=== PATIENT | female | born 1955 | race Caucasian/White ===

== ENCOUNTER 2018-07-11 15:33 | Observation (INO) | payer OTHER, SELFPAY ==
[2018-06-24 13:14] VITALS: BMI 34.7
[2018-07-10] VITALS (13 sets, daily range): BP systolic 97–167; BP diastolic 47–85; PULSE 68–86; RESP 15–21; TEMP 35.6–37.2; O2SAT 97–100; BMI 34.7
--- NOTE | 2018-07-10 06:00 | DI.RAD.S_ITS ---
PROCEDURE: XR KNEE RT 1TO2V INDICATIONS: post op film TECHNIQUE: 2 view(s) of the knee acquired. COMPARISON: None. FINDINGS: Bones: Patient is status post knee joint arthroplasty. Hardware components are in expected positions. Visualized bony structures are intact. Soft tissues: Overlying postoperative changes are noted. IMPRESSION: Post right total knee arthroplasty changes with anatomic right knee alignment. Dictated by: Alvaro Atkins M.D. on 07/10/2018 at 10:06 Approved by: Alvaro Atkins M.D. on 07/10/2018 at 10:07
[2018-07-10] MEDS: ACETAMINOPHEN 325 MG TABLET 975 MG PO (06:43)
[2018-07-10] MEDS: PREGABALIN 75 MG CAPSULE PO (06:44)
[2018-07-10] MEDS: CELECOXIB 200 MG CAPSULE PO (06:44)
[2018-07-10] MEDS: LACTATED RINGERS 1,000 ML 100 ML IV ×2 (06:51→08:53)
--- NOTE | 2018-07-10 07:40 | PM.PREOP ---
Pre-operative Note Interval Note Pre-op Check: Yes History & Physical Reviewed by Physician and Yes Exam Performed Changes: No
--- NOTE | 2018-07-10 07:42 | PM.OP.1 ---
Operative Date/Time/Diagnoses Date of procedure: 07/10/18 Time of procedure: 09:13 Pre-op diagnosis: Right knee osteoarthritis with valgus alignment Post-op diagnosis: same Procedure & Clinicians Procedure: Right total knee arthroplasty with S&N Visionaire guides Same procedure as scheduled: Yes Indications: The patient presents today for total knee arthroplasty after failure of conservative treatment. The nature of the procedure including the risks and benefits, alternatives, postoperative course and expected outcome were discussed and all questions answered. Consent was obtained. Operative site confirmed and marked. Surgeon: Ivan Shah Audio Director: Majo Pace Anesthesia Type: General, Spinal and Local Operative Notes Findings: Severe lateral compartment arthritis with mild valgus alignment. Closure Type: primary Specimen(s): none sent Implants & Drains: Hahn [employer] Nephew Nima BCS: 4 femoral component, 2 tibial component, 9 mm BCS polyethylene tray and 32 x 9 mm round patella Applied: implant(s) Estimated Blood Loss (mL): 25 Blood products transfused: none Tourniquet time (min): 22 Procedure in detail: The patient was taken to the operative suite and placed under general and spinal anesthesia. The patient was given prophylactic antibiotics prior to surgery. The patient was also given tranexamic acid, 1 g, just prior to surgery for postoperative hemostasis. The lateral knee was prepped and the joint injected with 20 mL of 1% Lidocaine with epinephrine. The knee was then prepped and draped in usual sterile fashion. The leg was exsanguinated with an Esmarch dressing and the tourniquet raised to 250 torr. A 15 cm anterior incision was made. Next a medial trivector arthrotomy was made. The extensor mechanism was marked to ensure accurate repair. Initial exposing dissection was carried out medially and laterally. The knee was then extended and the patellar thickness was measured and a cut made removing approximately 9 mm of bone with a goal of restoring normal patellar thickness. The patella was then sized and drilled. Some excess lateral bone was excised and the patellofemoral ligament released. The tourniquet was then released. The knee was then flexed and the H[employer]hew Visionaire femoral guide was placed. The anterior pins were placed and the distal rotation holes drilled. The distal cutting guide was placed and the templated distal femoral cut was made. The templating cutting block was then placed and the anterior, posterior and chamfer cuts made. The H[employer]hew Visionaire tibial guide was placed and the alignment checked along the axis of the proximal tibial with a alana. The proximal tibial cut was then made with an oscillating saw. All meniscus and bony debris was then removed. Flexion extension gaps were checked. There is just mild tightness laterally particularly in extension. This was corrected by releasing the lateral capsule with a 15 blade using a pie crust technique. The soft tissues were then injected with a combination of 20 mL of half percent Marcaine with epinephrine and 20 mL of Exparel. The trial components were then placed. The knee went into full extension and flexion beyond 120?. There was excellent medial- lateral balance throughout motion. Patellar tracking was excellent. The trial components were removed and size is confirmed for the final implants. The knee was then exsanguinated with an Esmarch dressing and the tourniquet reapplied for cementing. The knee was cleansed with Pulsavac irrigation and dried. The final components were cemented in with high viscosity vacuum mixed bone cement with antibiotics. The knee was held in extension and the patellar clamp until the cement had adequately cured. The knee was then irrigated with dilute Betadine solution. The extensor mechanism was closed with 5 interrupted #1 Vicryl sutures in 90 degrees of flexion. The joint was then injected with a combination of 1 g of tranexamic acid and 20 mL of quarter percent Marcaine with epinephrine. The subcutaneous tissue was closed with 2-0 Vicryl. The skin was closed with charly and surgical adhesive. An Aquacel dressing and Vinh wrap were then applied. Complications: none Condition: stable Disposition: PACU Plan for aftercare: [facility] protocol for total knee arthroplasty.
[2018-07-10] MEDS: CEFAZOLIN 2 GM/100 ML FROZ.PIGGY IV ×2 (07:44→17:16)
--- NOTE | 2018-07-10 08:21 | SUR.OPER ---
Supine on padded OR bed. Pillow under head, arms secured on padded armboards <90 degree abduction. Safety belt across torso. Non-operative leg secured with tape over blanket over lower leg. Operative leg secured in DeMayo/Jatin positioner. Foam padded brace at thigh of operative leg.
[2018-07-10] MEDS: LIDOCAINE 1% W/EPI INJ 20 ML INJ (08:32)
[2018-07-10] MEDS: BUPIVACAINE 0.5% W/ EPI (PF) 20 ML, BUPIVACAINE LIPOSOME 266 MG, SODIUM CHLORIDE 0.9% 8... INJ (08:33)
[2018-07-10] MEDS: BUPIVACAINE 0.5% W/ EPI (PF) 10 ML, TRANEXAMIC ACID 1,000 MG, SODIUM CHLORIDE 0.9% 20 ML INJ (08:35)
[2018-07-10] MEDS: TRANEXAMIC ACID 1,000 MG VIAL 1000 MG INJ ×2 (08:36→08:53)
[2018-07-10] MEDS: POVIDONE-IODINE 15 ML, SODIUM CHLORIDE 0.9% 250 ML TOP (08:36)
[2018-07-10] MEDS: LACTATED RINGERS 1,000 ML 125 ML IV ×2 (10:20→20:09)
--- NOTE | 2018-07-10 13:22 | PC.NURSE ---
0950- Pt admitted to the floor at 0950. Dressing to r.knee with aquacel and vinh wrap. Both are cdi. Pt has feeling to mid thigh. She was incontinent of urine x1. Vinh wrap removed from aquacel dressing as it got wet. Pt is independent in her bed and is moving from side to side well. She denies pain. Pt has LR infusing at 125cc/hr. has been visiting with patient. PPX2 and pt denies any numbness or tingling at this time.
--- NOTE | 2018-07-10 13:55 | PT.IIE ---
Current Diagnoses Insomnia, unspecified (07/10/18) Obstructive sleep apnea (adult) (pediatric) (07/10/18) Surgery Performed Operation Date: 07/10/18 07:45 Actual Procedures p Total Knee Arthroplasty(Right) - Ivan Shah MD Surgical History (Last Updated 06/24/18 @ 15:18 by Martita Forde, RN) H/O sinus surgery (Acute) H/O: (Acute) History of bilateral tubal ligation (Acute) History of bladder suspension procedure (Acute) History of colonoscopy (Acute) History of mandibular surgery (Acute) Medical History (Last Updated 06/24/18 @ 15:22 by Martita Forde, RN) Anemia, iron deficiency (Acute) Anxiety (Acute) Arthropathy of hand (Acute) Bilateral carpal tunnel syndrome (Acute) Zoya nodes (DJD hand) (Acute) Bruises easily (Acute) Cataracts, bilateral (Acute) Constipation (Acute) DJD (degenerative joint disease) of knee (Acute) Elevated BP without diagnosis of hypertension (Acute) GERD (gastroesophageal reflux disease) (Acute) Headache (Acute) History of menorrhagia (Acute) Hyperthyroidism (Acute) Hyponatremia (Acute) Insomnia (Acute) Low back pain (Acute) HARVEY (obstructive sleep apnea) (Acute) Other constipation (Acute) Other hyperlipidemia (Acute) PLMD (periodic limb movement disorder) (Acute) Postmenopausal (Acute) Recurrent sinusitis (Acute) Restless leg syndrome (Acute) Sigmoid diverticulosis (Acute) Thrombocytopenia (Acute) Physical Therapy Inpatient Evaluation/Re-Eval M1 PT/OT-IP Prior Functional Status Start: 07/10/18 15:17 Freq: NEEDED Status: Active Protocol: Document 07/10/18 13:55 AB (Rec: 07/10/18 15:49 AB [id number]) Medical Review Prior Functional Status Medical History Reviewed Yes Communication able to make needs known Mobility and Gait stated that she is independent with all mobilities and ambulation without AD; able to walk ~ 1 mile but will have a lot of knee pain afterwards Social History Household Members spouse Living Arrangements House Number of Floors (Floors) 3 or More Floors Number of Stairs To Enter/Railing? 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 M2 PT-IP Current Condition Start: 07/10/18 15:17 Freq: NEEDED Status: Active Protocol: Document 07/10/18 13:55 AB (Rec: 07/10/18 15:49 AB [id number]) Physical Therapy Current Condition Current Condition Evaluation Date 07/10/18 Treatment Diagnosis s/p R TKA; difficulty in walking Onset Date 07/10/18 Weight Bearing Status Weight Bearing Status Weight Bear as Tolerated M3 PT-IP Subjective Start: 07/10/18 15:17 Freq: NEEDED Status: Active Protocol: Document 07/10/18 13:55 AB (Rec: 07/10/18 15:49 AB [id number]) Subjective Physical Therapy Visit Type Type Initial Evaluation Visit Start Time 13:55 Visit Stop Time 14:38 Total Visit Minutes 43 Number of CREMATOR Visits 0 Physical Therapy Visit Comments Patient Comments pt agreeable to do PT Therapy Pain Assessment Pain When Pain Assessed At Rest Pain Present Pain Present Pain Reported Location Right Knee Intensity 6 Scale Used Numeric (1 - 10) Description With Movement Pain Management Techniques Apply Cold Re-positioning Timing of Activity with Medications M4 PT-IP Mobility and Gait Start: 07/10/18 15:17 Freq: NEEDED Status: Active Protocol: Document 07/10/18 13:55 AB (Rec: 07/10/18 15:49 AB [id number]) PT-Bed Mobility Assessment Supine to Sit Supine to Sit Standby Assistance 1 Person Assistance Scooting Scooting to Edge of Bed Standby Assistance PT-Transfer Assessment Sit to and From Stand Sit to and from Stand Contact Guard Assistance 1 Person Assistance Use of Upper Extremities Equipment Transfer Assistive Device Gait Belt Front Wheeled Walker Orthotic/Prosthetic Devices or Brace: No Transfers Transfer Destination Toilet Transfer Technique pt ambulated to the toilet using FWW Transfer Ability Level of Assist Contact Guard Assistance 1 Person Assistance Use of Upper Extremities Comments Mobility Comments BP in supine 141/71. pt requested to use the toilet and ambulated using FWW CGA and cues. pt was able to maintain standing balance CGA while assisted with brief management. pt ambulated towards the sink CGA using FWW and was able to maintain standing balance CGA while completing handwashing. pt ambulated back to chair using FWW CGA. BP checked 149/90. Gait Assessment Gait Gait Assistance Required: Contact Guard Assist Distance (Feet) 75 Able to Maintain Weight Bearing Status Yes During Gait Assistive Devices Assistive Device Gait Belt Front Wheeled Walker Orthotic/Prosthetic Devices or Brace: No Gait Deviations General Gait Pattern Antalgic Decreased Stride Length Decreased Feet Clearance Factors Limiting Gait Function Factors Limiting Gait Function Decreased Activity Tolerance Decreased Strength Limited Range of Motion Pain Poor Balance Comments Gait Comments pt ambulated in room using FWW 75 ft CGA and cues. PT-Balance Assessment Sitting Balance and Reactions Static Sitting Balance Ability Good Dynamic Sitting Balance Ability Good Standing Balance and Reactions Static Standing Balance Ability Fair Dynamic Standing Balance Ability Fair Device Used FWW M5 PT-IP Objective Assessments Start: 07/10/18 15:17 Freq: NEEDED Status: Active Protocol: Document 07/10/18 13:55 AB (Rec: 07/10/18 15:49 AB [id number]) Orientation Orientation/Cognition Level of Alertness Alert Orientation Name Age Birthday Month Date Year Day of Week Place Situation Safety Awareness Understands Safety Issues Memory Description No Deficits Noted Gross Range of Motion Lower Extremity ROM Assessment Right Impaired Impairments R knee flexion : ~ 70 degrees Strength Lower Extremity Strength Assessment Right Impaired Knee 3+/5 Muscle Tone Muscle Tone WNL Yes M6 PT-IP Treatment Start: 07/10/18 15:17 Freq: NEEDED Status: Active Protocol: Document 07/10/18 13:55 AB (Rec: 07/10/18 15:49 AB [id number]) Physical Therapy Treatment Education Education Provided Precautions Weight Bearing Status Post-Op Packet Safety M7 PT-IP Assessment and Plan Start: 07/10/18 15:17 Freq: NEEDED Status: Active Protocol: Document 07/10/18 13:55 AB (Rec: 07/10/18 15:49 AB [id number]) PT Summary Assessment and Plan Potential Rehabilitation Potential Good Status of Condition at Evaluation Stable Summary Impairments Pain ROM Strength Balance Coordination Sensation Tone Cognition Bed Mobility Transfers Gait Activity Tolerance Assessment Summary pt requiring SBA to CGA with mobility and will likely improve during hospital stay. pt will have spouse and daughter in law to assist her at home. stairclimbing will be completed prior to d/c and if able to complete safely, pt may go home when medically stable. Goals Bed Mobility Goal Independent Transfer Goal Independent Front Wheeled Walker Gait Goal Independent Four Wheel Walker Gait Distance 250 Other Goals Short term goals: 1. improve ambualtion to mod I using 4WW Log term goals: 1. up/down 5 steps with L rail ascending; 15 steps with R rail descending. Days to Meet Goals 3 Frequency of Treatment Frequency Of Treatment Twice a Day Treatment Plan Physical Therapy Treatment Plan Bed Mobility Training Transfer Training Gait Training Therapeutic Exercise Balance Retraining Post Op Education Discharge Planning Hot or Cold Pack Neuromuscular Re-ed Coordination Retraining Manual Therapy Recommendations To Nursing Amount of Assist Needed 1 Person Assist Discharge Recommendations PT Discharge Recommendations Home with Assistance Outpatient PT
[2018-07-10] MEDS: OXYCODONE IR 5 MG TABLET PO ×3 (14:24→20:54)
--- NOTE | 2018-07-10 16:50 | PC.NURSE ---
Addendum entered by Chelly Almeida R.N. 07/10/18 22:33: Pt med @ 2100 for discomfort. Dsg remains CDI. 1+ edema at ankles Stable post op course. Call light w/in reach, bed alarm on for pt safety. Continue w/plan of care Original Note: Pt sitting in chair. Assisted to BR w/FWW w/o incidense. Denies discomfort at this time. IV LR @ 125/hr via pump infusing into right hand w/o incidence. Aquacell dsg to right knee CDI. IS to 1999 Stable post op course.
[2018-07-10] MEDS: LOVASTATIN 20 MG TABLET 40 MG PO (17:14)
[2018-07-10] MEDS: ASPIRIN EC 81 MG TABLET PO (20:51)
[2018-07-10] MEDS: PRAMIPEXOLE 0.25 MG TABLET 0.5 MG PO (20:52)
[2018-07-11] MEDS: OXYCODONE IR 5 MG TABLET PO ×2 (00:05→04:01)
[2018-07-11] MEDS: CEFAZOLIN 2 GM/100 ML FROZ.PIGGY IV (00:05)
[2018-07-11] MEDS: ONDANSETRON 4 MG/2 ML INJ IV (01:09)
[2018-07-11] MEDS: IBUPROFEN 600 MG TABLET PO (01:19)
[2018-07-11] MEDS: HYDROMORPHONE 0.5 MG INJ IV (03:24)
--- NOTE | 2018-07-11 03:28 | PC.NURSE ---
Pt A&OX3. LS: clear. PP++. CMS++. R.knee dressing CDI. Pt c/o nausea and had an emesis of 50cc, administered zofran. pt now taking IV dilaudid. IVF infusing. pt drinking plenty of water.
[2018-07-11 03:34] VITALS: BP 152/78; PULSE 100; RESP 18; TEMP 37.1; O2SAT 97
[2018-07-11 07:30] VITALS: BP 148/87; PULSE 78; RESP 18; TEMP 36.8; O2SAT 97
--- NOTE | 2018-07-11 07:44 | PM.DS.1 ---
History of Present Illness Date Patient Seen: 07/11/18 Time Patient Seen: 07:44 Chief complaint: *OPB* total knee right [id number] Narrative: Hospital day 2, postop day 1 following right total knee arthroplasty by Dr. Shah. Patient is remained stable postoperatively. Did have 1 episode of nausea and vomiting which he thinks is related to her pain. She did work with physical therapy yesterday. Note increased knee pain today. She did have to have an IV dose of Dilaudid. She is concerned about going home today as she has 5 steps getting into the house and 15 steps to go up to her bedroom and bathroom. She was anticipating going home today. She has a [facility] patient and has postoperative pain medications at home. She is scheduled to go to [facility]. Discharge Providers Primary care physician: Jose Barnhart MD Consults: 07/10/18 10:39 Consult to Discharge Planning Routine Comment: Consult to Physical Therapy Evaluate & Treat Comment: Physician Instructions: postop TKA protocol Consult to Respiratory Therapy Evaluate & Treat Comment: Physician Instructions: Evaluate and treat Discharge provider: Gee Greenberg PA-C Discharge Date: 07/11/18 Summary Discharge Diagnosis: Status post right total knee arthroplasty Hospital Course: Patient brought to hospital on 07/10/2018 for above noted surgery. She remained stable postoperatively. Progressed slowly with physical therapy. She was discharged home on postop day 1 pending clearance by physical therapy. Status at Discharge Cognitive/behavioral status at discharge: Alert, oriented no acute distress Functional status at discharge: uses cane/walker Overall status at discharge: patient is progressing back to baseline Time Spent with Patient Less than 30 minutes Exam Vital Signs (past 8 hours): - 07/10/18 23:50 07/11/18 03:34 Temperature 99.0 F 98.8 F Pulse Rate 82 100 H Respiratory Rate 18 18 Blood Pressure 148/85 H 152/78 H Pulse Oximetry 98 97 Oxygen Delivery Method Room Air Oxygen Flow Rate 0 Narrative Exam Narrative: Right leg. Vinh wrap an Aquacel dressing to her right knee are dry without drainage or inflammation. Mild swelling of the knee and lower leg. Calf is soft and nontender. Good pulses distally. Limited ROM of knee. Objective Labs Result Diagrams: 07/11/18 05:37 Discharge Plan Discharge Plan Patient Disposition: Home Discharge comment: Discharged to home today pending clearance by physical therapy. She is a [facility] patient and has postoperative pain medications at home. She is scheduled to go [facility]. Discharge Med Rec/Prescriptions Prescriptions: New aspirin 81 mg Tablet,Delayed Release (Dr/Ec) 81 mg PO BID Qty: 60 RF: 0 hydroxyzine pamoate 25 mg Capsule 25 mg PO Q4HR PRN (Reason: Nausea) Qty: 20 RF: 0 Continue lovastatin 40 mg Tablet 40 mg PO QPM RF: 0 pramipexole 0.5 mg Tablet 0.5 mg PO BEDTIME RF: 0 ranitidine HCl 150 mg Tablet 150 mg PO DAILY PRN (Reason: Heartburn) RF: 0 ibuprofen [Advil] 200 mg Tablet 400 mg PO QID PRN (Reason: Pain) RF: 0 Discharge Orders: Discharge (Order); Ordered 07/11/18 Ordered By: Gee Greenberg Provider Discharge Instructions Diet: Diet as Tolerated Activity: Ambulate as tolerated. Move right knee as much as possible. Cold/Heat Therapy: Cold pack to right knee as needed. Skin/Wound/Dressing Care Report to your healthcare provider any signs of infection, such as:: chills, fever, night sweats, increased pain, unusual drainage and unusual redness Dressing: Keep Aquacel dressing in place to right knee untill postop visit. Visit Report/Discharge Packet Instructions: DI for Knee Replacement Stand Alone Forms: Surgery Discharge Discharge Data Primary Care Provider: Jose Barnhart Attending Provider: Ivan Shah VTE Deep Vein Thrombosis/Pulmonary Embolism Present on Admission: No
[2018-07-11] MEDS: hydrOXYzine pamoate 25 MG CAPSULE PO ×3 (08:01→18:40)
[2018-07-11] MEDS: ASPIRIN EC 81 MG TABLET PO ×2 (08:01→21:30)
[2018-07-11 08:17] LABS: Hematocrit 35.9 % (36-46); Hemoglobin 12.1 g/dL (12.0-16.0)
[2018-07-11] MEDS: OXYCODONE IR 5 MG TABLET 10 MG PO ×5 (08:38→21:30)
--- NOTE | 2018-07-11 08:57 | CM.DANOTE ---
DCP/Assessment: Reviewed chart. Patient is a 63yr old female [place] [facility] [place] [facility] performed by Dr. Shah on 07-10-18. Primary payor is 1)Prakash DONALDSON. PCP is Dr. Barnhart. Met with patient explained CM/SW role. Patient sitting in recliner, alert and oriented at time of visit. Patient reports that she resides with her spouse/Keenan in [place]. Patient is employed with the [place]. Patient anticipates going home when medically stable. Patient reports that she has all needed DME including walker and outpatient therapy has been scheduled to begin next week in [place]. Initially, it was thought patient might be able to d/c home today. However, patient has had pain and concerned about managing the stairs she has at her residence. Spoke with Ortho/PA Olman and he reports that patient most likely will discharge tomorrow. Plan is for patient to get pain under control today and work on stairs with physical therpy. UR/RN Ivan wheeler. P: Home when stable, likely tomorrow 07-12-18. VANESA Munoz Discharge Planning/Care Management Pre-Anesthesia Assessment Start: 06/24/18 13:14 Freq: Status: Active Protocol: Document 06/24/18 13:14 [facility] (Rec: 06/24/18 13:38 [facility] [id number]) Pre-Anesthesia Assessment Patient Also Known As Nydia Cain (AKA)) Patient Information Reviewed Via Chart Review Phone Assessment Assessment Completed With Patient Primary Care Provider Jose Barnhart Seen Specialist in Last 12 Months Yes Specialist Seen Carpet Binder Orthopedist Other Comment GI Primary Language Italian Supervisor Of Guidance And Testing Required No Height 146.05 cm Weight 73.936 kg Body Mass Index (BMI) 34.7 Hearing Ability Normal Visual Impairment Partially Limited Visual Assist Glasses Dentition Type Teeth, Natural Present Barriers to Learning Visual Other Aids No Hx Anesthesia Reactions Yes: N&V Hx Family Anesthesia Reaction No Hx Malignant Hyperthermia No Hx Blood Transfusions Yes: 1983 Hx Blood Transfusion Reaction No Anesthesia Review Requested No Member Of Technical Staff No alcohol intake current alcohol intake frequency a few times a month Smoking Status Never smoker Substance Use Type does not use Pain Present Pain Reported Comment Bilateral knees Musculoskeletal Symptoms Arthralgias Back Pain Joint Pain Joint Stiffness Joint Swelling Limited Range of Motion Muscle Spasms History of Falling (Recent or History of No ) Patient is completely paralyzed or No completely immobile Ambulatory Aid None/bed rest/nurse assist Mental Status Oriented to own ability Is patient on oxygen? No Does patient have RAMIREZ/SOB No Hx Sleep Apnea Yes CPAP/BIPAP use prescribed and used routinely Currently Taking a Beta Eduar No Can You Climb a Flight of Stairs Without Yes SOB Hx Chest Pain No Hx SOB No Hx Syncope or Dizziness No Anti-Coagulant Therapy No Has a Commercial Litigation Associate No Cardiac Testing No Hx Pacemaker/ICD No Pacemaker Rep Required? No Cardiac Clearance Received Not Applicable Diet Type At Home Low Carb dysphagia Yes Bladder Pattern Frequency Nocturia Urgency Urinary Catheter Present No Hx Urinary Self Catheterization No Diabetes No Patient No Lactating No Hx Drug Resistant Organism No Presence of External or Internal Medical No Devices Have you traveled outside the [facility] in the last 30 days? Marital Status Lives With spouse Prior Living Arrangements House Number of Floors (Floors) 3 or More Floors Number of Stairs To Enter/Railing? Able to stay on the main level post-op; 5 stairs into house w/handrail Support System Family Spouse Does the Patient Have Assistance After Yes Surgery Patient Discharge Plan Description Home Health Feels Safe in Current Environment Yes Been Physically Hurt or Threatened By a No Person in Current Environment Do you have thoughts of harming yourself None or others? Are you currently considering suicide? No Do you have a plan to hurt yourself or No Plan others? Do You Have Any Spiritual Beliefs That No May Affect Your HC Choices? Do You Have Any Cultural Practices That No May Affect Your HC Choices? Spiritual Referral None Comment [facility] Who Can We Speak to About Patient's Care Family & Friends Identifying Code for Release of Patient Declined Information Health Care Proxy/Next of Kin - Keenan Nolasco Health Care Proxy Phone Number C [phone]; [phone] W Emergency Contact Name - Keenan Nolasco Emergency Contact Phone Number C [phone]; [phone] W Advance Directives? No: Mailed to patient Requested Patient Bring Advanced Yes Directives DOS Power of Unhairing Inspector No PAC Instructions Assistance for 24 hours post- op Bring CPAP/BIPAP Do not shave/clip surgical site Durable medical equipment Medications to take/avoid Nasal antibiotic No ETOH/petroleum product on skin DOS NPO Ortho class Post-op transportation Pre-op antibiotic Pre-surgical wash Sensory aids Sturdy shoes/comfortable clothes Do not bring valuables and remove jewelry Comment Check-in 0610 Discharge Planning/Care Management Pre-Anesthesia Assessment Start: 06/24/18 13:14 Freq: Status: Active Protocol: Document 06/24/18 13:14 [facility] (Rec: 06/24/18 13:38 [facility] [email or web address]) Pre-Anesthesia Assessment Patient Also Known As (CEDRIC Cain) Patient Information Reviewed Via Chart Review Phone Assessment Assessment Completed With Patient Primary Care Provider Jose Barnhart Seen Specialist in Last 12 Months Yes Specialist Seen Carpet Binder Orthopedist Other Comment GI Primary Language Italian Supervisor Of Guidance And Testing Required No Height 146.05 cm Weight 73.936 kg Body Mass Index (BMI) 34.7 Hearing Ability Normal Visual Impairment Partially Limited Visual Assist Glasses Dentition Type Teeth, Natural Present Barriers to Learning Visual Other Aids No Hx Anesthesia Reactions Yes: N&V Hx Family Anesthesia Reaction No Hx Malignant Hyperthermia No Hx Blood Transfusions Yes: 1982 Hx Blood Transfusion Reaction No Anesthesia Review Requested No Member Of Technical Staff No alcohol intake current alcohol intake frequency a few times a month Smoking Status Never smoker Substance Use Type does not use Pain Present Pain Reported Comment Bilateral knees Musculoskeletal Symptoms Arthralgias Back Pain Joint Pain Joint Stiffness Joint Swelling Limited Range of Motion Muscle Spasms History of Falling (Recent or History of No ) Patient is completely paralyzed or No completely immobile Ambulatory Aid None/bed rest/nurse assist Mental Status Oriented to own ability Is patient on oxygen? No Does patient have RAMIREZ/SOB No Hx Sleep Apnea Yes CPAP/BIPAP use prescribed and used routinely Currently Taking a Beta Eduar No Can You Climb a Flight of Stairs Without Yes SOB Hx Chest Pain No Hx SOB No Hx Syncope or Dizziness No Anti-Coagulant Therapy No Has a Commercial Litigation Associate No Cardiac Testing No Hx Pacemaker/ICD No Pacemaker Rep Required? No Cardiac Clearance Received Not Applicable Diet Type At Home Low Carb dysphagia Yes Bladder Pattern Frequency Nocturia Urgency Urinary Catheter Present No Hx Urinary Self Catheterization No Diabetes No Patient No Lactating No Hx Drug Resistant Organism No Presence of External or Internal Medical No Devices Have you traveled outside the [facility] in the last 30 days? Marital Status Lives With spouse Prior Living Arrangements House Number of Floors (Floors) 3 or More Floors Number of Stairs To Enter/Railing? Able to stay on the main level post-op; 5 stairs into house w/handrail Support System Family Spouse Does the Patient Have Assistance After Yes Surgery Patient Discharge Plan Description Home Health Feels Safe in Current Environment Yes Been Physically Hurt or Threatened By a No Person in Current Environment Do you have thoughts of harming yourself None or others? Are you currently considering suicide? No Do you have a plan to hurt yourself or No Plan others? Do You Have Any Spiritual Beliefs That No May Affect Your HC Choices? Do You Have Any Cultural Practices That No May Affect Your HC Choices? [facility]ual Referral [facility] Who [facility] We Spe[facility] to About Patient's Care Family & Friends Identifying Code for Release of Patient Declined Information Health Care Proxy/Next of Kin - Keenan Nolasco Health Care Proxy Phone Number C [phone]; [phone] W Emergency Contact Name - Keenan Nolasco Emergency Contact Phone Number C [phone]; [phone] W Advance Directives? No: Mailed to patient Requested Patient Bring Advanced Yes Directives DOS Power of Unhairing Inspector No PAC Instructions Assistance for 24 hours post- op Bring CPAP/BIPAP Do not shave/clip surgical site Durable medical equipment Medications to take/avoid Nasal antibiotic No ETOH/petroleum product on skin DOS NPO Ortho class Post-op transportation Pre-op antibiotic Pre-surgical wash Sensory aids Sturdy shoes/comfortable clothes Do not bring valuables and remove jewelry Comment Check-in 06
--- NOTE | 2018-07-11 10:13 | PC.NURSE ---
Addendum entered by Zaina Bay R.N. 07/11/18 12:08: PAIN/MS/DC - discussed pain mgt, meds, dosages and timing, will continue with same as earlier am, pain 5 on scale 0/10, pt states not ready to dc home this afternoon and per discussion with Olman Barrios today, the dc order was cancelled. Original Note: AM NOTE - awake, states r knee pain 7 on scale 0/10, winces when assisted up to void, did not sleep well due discomfort, earlier nausea at times, sana diet this am, spoke Olman HURLEY and new orders rec'd and given 10mg oxycodone and 25mg po vistaril with meal, ra 95%, uses IS to 1500, hr reg 78, later up with phys therapy and reports knee discomfort improved to 5/[address] w/fww, renee jones.
--- NOTE | 2018-07-11 10:56 | PT.IPTN ---
Current Diagnoses Insomnia, unspecified (07/10/18) Obstructive sleep apnea (adult) (pediatric) (07/10/18) Surgery Performed Operation Date: 07/10/18 07:45 Actual Procedures p Total Knee Arthroplasty(Right) - Ivan Shah MD Physical Therapy Treatment Note M2 PT-IP Current Condition Start: 07/10/18 15:17 Freq: NEEDED Status: Active Protocol: Document 07/10/18 13:55 [facility] (Rec: 07/10/18 15:49 AB [id number]) Physical Therapy Current Condition Current Condition Evaluation Date 07/10/18 Treatment Diagnosis s/p R TKA; difficulty in walking Onset Date 07/10/18 Weight Bearing Status Weight Bearing Status Weight Bear as Tolerated M3 PT-IP Subjective Start: 07/10/18 15:17 Freq: NEEDED Status: Active Protocol: Document 07/11/18 10:44 [facility] (Rec: 07/11/18 10:56 SA [id number]) Subjective Physical Therapy Visit Type Type Treatment Note Visit Start Time 09:43 Visit Stop Time 10:09 Total Visit Minutes 26 Number of MATTRESS SPRING ENCASER Visits 1 Physical Therapy Visit Comments Patient Comments Pt had excessive pain last night rating it at 9/10, states it is being managed better this AM at 5/10 on pain scale and recieved pain medication about 45 min prior to this PT session. Patient Goals To go home tomorrow, manage stairs. Therapy Pain Assessment Pain When Pain Assessed During Mobility Pain Present Pain Present Pain Reported Location Right Knee Intensity 5 Scale Used Numeric (1 - 10) Description With Movement Pain Management Techniques Apply Cold Re-positioning Timing of Activity with Medications M4 PT-IP Mobility and Gait Start: 07/10/18 15:17 Freq: NEEDED Status: Active Protocol: Document 07/11/18 10:44 [facility] (Rec: 07/11/18 10:56 SA [id number]) PT-Bed Mobility Assessment Rolling Type of Rolling Roll to Left Level of Assist Standby Assistance Supine to Sit Supine to Sit Standby Assistance 1 Person Assistance Sit to Supine Sit to Supine Minimal Assistance Scooting Scooting to Edge of Bed Standby Assistance Scooting Up and Down in Bed Standby Assistance PT-Transfer Assessment Sit to and From Stand Sit to and from Stand Standby Assistance 1 Person Assistance Use of Upper Extremities Equipment Transfer Assistive Device Gait Belt Front Wheeled Walker Orthotic/Prosthetic Devices or Brace: No Transfers Transfer Destination Bed Toilet Transfer Technique Stand Step Pivot Transfer Ability Level of Assist Standby Assistance 1 Person Assistance Use of Upper Extremities Comments Mobility Comments Pt denied diziness with position changes. SBA with bed mobility except sit>supine wherw pt needs min A to clear LE over EOB. Stand pivot txs safely with FWW and SBA. Pt receptive to safety training. Gait Assessment Gait Gait Assistance Required: Contact Guard Assist Distance (Feet) 150 Able to Maintain Weight Bearing Status Yes During Gait Assistive Devices Assistive Device Gait Belt Front Wheeled Walker Orthotic/Prosthetic Devices or Brace: No Gait Deviations General Gait Pattern Antalgic Decreased Stride Length Decreased Feet Clearance Factors Limiting Gait Function Factors Limiting Gait Function Decreased Activity Tolerance Decreased Strength Limited Range of Motion Pain Poor Balance Comments Gait Comments Pt ambulated to/from stairs in howard with 2 standing rest breaks and Mod cues for increased WBing through RLE and knee flexion for clearance . About 150 feet. Stair Climbing Assessment Evaluation Level of Assist On Stairs Contact Guard Assistance Devices Stair Climbing Assistive Devices Left Railing Right Railing Technique/Endurance Stair Climbing Direction Ascend and Descend Stair Climbing Technique Step to Step Number of Steps Climbed 3 Query Text: Stair Climbing Set # Repetitions (reps) 1 Comments Stair Climbing Comments Pt needing B rails for step to gait pattern and cues for safe technique. Pt reported slight increased in knee pain after stair climb. Pt left supine in room with CP to knee . M5 PT-IP Objective Assessments Start: 07/10/18 15:17 Freq: NEEDED Status: Active Protocol: Document 07/10/18 13:55 [facility] (Rec: 07/10/18 15:49 AB [id number]) Orientation Orientation/Cognition Level of Alertness Alert Orientation Name Age Birthday Month Date Year Day of Week Place Situation Safety Awareness Understands Safety Issues Memory Description No Deficits Noted Gross Range of Motion Lower Extremity ROM Assessment Right Impaired Impairments R knee flexion : ~ 70 degrees Strength Lower Extremity Strength Assessment Right Impaired Knee 3+/5 Muscle Tone Muscle Tone WNL Yes M6 PT-IP Treatment Start: 07/10/18 15:17 Freq: NEEDED Status: Active Protocol: Document 07/11/18 10:44 SA (Rec: 07/11/18 10:56 SA [id number]) Physical Therapy Treatment Exercises Exercises Ankle Pumps Quad Sets Seated Knee Flexion/Extension Education Education Provided Precautions Weight Bearing Status Post-Op Packet Safety Other Treatments Other Treatment Performed Pt has personal FWW and no need for elevated toilet seat. M7 PT-IP Assessment and Plan Start: 07/10/18 15:17 Freq: NEEDED Status: Active Protocol: Document 07/11/18 10:44 [facility] (Rec: 07/11/18 10:56 SA [id number]) PT Summary Assessment and Plan Summary Assessment Summary Pt to d/c home tomorrow with spouse and daughter in law present. Managed 3 stairs well, plan to increase stairs this afternoon as pt will have to manage 15 stairs in home 1x in AM and 1x in PM. Goals Other Goals Short term goals: 1. improve ambulation to mod I using 4WW Log term goals: 1. up/down 5 steps with L rail ascending; 15 steps with R rail descending. Frequency of Treatment Frequency Of Treatment Twice a Day Recommendations To Nursing Amount of Assist Needed 1 Person Assist Discharge Recommendations PT Discharge Recommendations Home with Assistance Outpatient PT
[2018-07-11 12:30] VITALS: BP 151/87; PULSE 84; RESP 18; TEMP 36.6; O2SAT 97
--- NOTE | 2018-07-11 13:45 | PT.IPTN ---
Current Diagnoses Insomnia, unspecified (07/10/18) Obstructive sleep apnea (adult) (pediatric) (07/10/18) Surgery Performed Operation Date: 07/10/18 07:45 Actual Procedures p Total Knee Arthroplasty(Right) - Ivan Shah MD Physical Therapy Treatment Note M2 PT-IP Current Condition Start: 07/10/18 15:17 Freq: NEEDED Status: Active Protocol: Document 07/10/18 13:55 AB (Rec: 07/10/18 15:49 AB [id number]) Physical Therapy Current Condition Current Condition Evaluation Date 07/10/18 Treatment Diagnosis s/p R TKA; difficulty in walking Onset Date 07/10/18 Weight Bearing Status Weight Bearing Status Weight Bear as Tolerated M3 PT-IP Subjective Start: 07/10/18 15:17 Freq: NEEDED Status: Active Protocol: Document 07/11/18 13:45 [facility] (Rec: 07/11/18 14:20 [facility] [email or web address]) Subjective Physical Therapy Visit Type Type Treatment Note Visit Start Time 13:15 Visit Stop Time 13:45 Total Visit Minutes 30 Number of MEDICAL BILLING SUPERVISOR Visits 2 Physical Therapy Visit Comments Patient Comments Pt willing to work with PT. Therapy Pain Assessment Pain When Pain Assessed During Mobility Pain Present Pain Present Pain Reported Location Right Knee Intensity 7 Scale Used Numeric (1 - 10) Description With Movement Pain Management Techniques Apply Cold Re-positioning Timing of Activity with Medications M4 PT-IP Mobility and Gait Start: 07/10/18 15:17 Freq: NEEDED Status: Active Protocol: Document 07/11/18 13:45 [facility] (Rec: 07/11/18 14:20 [facility] [id number]) PT-Bed Mobility Assessment Supine to Sit Supine to Sit Minimal Assistance Sit to Supine Sit to Supine Minimal Assistance Scooting Scooting to Edge of Bed Standby Assistance Scooting Up and Down in Bed Standby Assistance PT-Transfer Assessment Sit to and From Stand Sit to and from Stand Standby Assistance Use of Upper Extremities Equipment Transfer Assistive Device Gait Belt Front Wheeled Walker Orthotic/Prosthetic Devices or Brace: No Transfers Transfer Destination Bed Toilet Transfer Ability Level of Assist Standby Assistance 1 Person Assistance Use of Upper Extremities Gait Assessment Gait Gait Assistance Required: Contact Guard Assist Distance (Feet) 150 Able to Maintain Weight Bearing Status Yes During Gait Assistive Devices Assistive Device Gait Belt Front Wheeled Walker Orthotic/Prosthetic Devices or Brace: No Gait Deviations General Gait Pattern Antalgic Decreased Stride Length Decreased Feet Clearance Factors Limiting Gait Function Factors Limiting Gait Function Decreased Activity Tolerance Decreased Strength Limited Range of Motion Pain Poor Balance Comments Gait Comments PT needed min cues for gait secquencing and right knee flexion. Stair Climbing Assessment Evaluation Level of Assist On Stairs Contact Guard Assistance Devices Stair Climbing Assistive Devices Straight Cane Left Railing Right Railing Technique/Endurance Stair Climbing Direction Ascend and Descend Stair Climbing Technique Step to Step Number of Steps Climbed 3 Query Text: Stair Climbing Set # Repetitions (reps) 2 Comments Stair Climbing Comments Stair mobility one set with right rail and SPC and one set with left rail and SPC, with CGA and min cues. M5 PT-IP Objective Assessments Start: 07/10/18 15:17 Freq: NEEDED Status: Active Protocol: Document 07/10/18 13:55 AB (Rec: 07/10/18 15:49 AB [id number]) Orientation Orientation/Cognition Level of Alertness Alert Orientation Name Age Birthday Month Date Year Day of Week Place Situation Safety Awareness Understands Safety Issues Memory Description No Deficits Noted Gross Range of Motion Lower Extremity ROM Assessment Right Impaired Impairments R knee flexion : ~ 70 degrees Strength Lower Extremity Strength Assessment Right Impaired Knee 3+/5 Muscle Tone Muscle Tone WNL Yes M6 PT-IP Treatment Start: 07/10/18 15:17 Freq: NEEDED Status: Active Protocol: Document 07/11/18 13:45 [facility] (Rec: 07/11/18 14:20 [facility] [id number]) Physical Therapy Treatment Exercises Exercises Ankle Pumps Quad Sets Heel Slides Seated Knee Flexion/Extension Education Education Provided Precautions M7 PT-IP Assessment and Plan Start: 07/10/18 15:17 Freq: NEEDED Status: Active Protocol: Document 07/11/18 13:45 [facility] (Rec: 07/11/18 14:20 [facility] [email or web address]) PT Summary Assessment and Plan Summary Assessment Summary Pt improving with mobility. She had improved gait pattern and was safe and stable. She was safe with stair mobility and improved pain. She would benifit from PT for stair climbing before D/C home. Frequency of Treatment Frequency Of Treatment Twice a Day Recommendations To Nursing Amount of Assist Needed 1 Person Assist Discharge Recommendations PT Discharge Recommendations Home with Assistance Outpatient PT
[2018-07-11 16:11] VITALS: BP 151/81; PULSE 80; RESP 19; TEMP 36.8; O2SAT 97
[2018-07-11] MEDS: LOVASTATIN 20 MG TABLET 40 MG PO (16:58)
[2018-07-11 19:58] VITALS: BP 145/64; PULSE 82; RESP 15; TEMP 37.2; O2SAT 95
[2018-07-11] MEDS: PRAMIPEXOLE 0.25 MG TABLET 0.5 MG PO (21:30)
[2018-07-11] MEDS: SODIUM CHLORIDE 0.9% FLUSH 10 ML IV (21:31)
[2018-07-12 00:13] VITALS: BP 149/66; PULSE 84; RESP 18; TEMP 37.1; O2SAT 95
[2018-07-12] MEDS: OXYCODONE IR 5 MG TABLET 10 MG PO ×3 (00:52→12:15)
[2018-07-12 03:42] VITALS: BP 149/75; PULSE 78; RESP 18; TEMP 37.1; O2SAT 98
[2018-07-12 07:44] VITALS: BP 142/78; PULSE 86; RESP 18; TEMP 36.8; O2SAT 96
[2018-07-12] MEDS: ASPIRIN EC 81 MG TABLET PO (09:06)
[2018-07-12] MEDS: SODIUM CHLORIDE 0.9% FLUSH 10 ML IV (09:07)
--- NOTE | 2018-07-12 10:08 | PC.NURSE ---
Addendum entered by Zaina Bay R.N. 07/12/18 13:58: DC - prior to dc, given 10mg oxycodone, declines vistaril at this time, reviewed dc instructions and script for vistaril provided, already had pain medications provided by sarah, belongings gathered, including her cpap, special events fundraiser, cell phone, clothing, glasses, scrap drop engineer assisted x1 person to wc and escorted to spouse's car. Original Note: AM NOTE - pt up to chair for breakfast, states slept well last night and pain management has improved, pain 2-4 this am, discussed medications, dosages and timing and admin 10mg oxycodone after breakfast for planned am phys therapy, aquacell dsg intact with small spot old serosang, ra 97%, discussed constipation and narcotics has had prunes yesterday and again this am, does have stool softeners and miralax at home.
--- NOTE | 2018-07-12 10:13 | CM.DPC ---
DCP Discharge Home Per Ortho PA, pt likely medically stable to d/c home today after further PT CG training this morning and currently no identified barriers to discharge. PT CG training in session currently and SW observed pt and spouse ambulating hallways with PT. Plan: Patient likely to d/c home today via spouse POV after final PT CG training this morning. No SW needs at this time. VANESA Padilla
--- NOTE | 2018-07-12 10:30 | PT.IPTN ---
Current Diagnoses Insomnia, unspecified (07/10/18) Obstructive sleep apnea (adult) (pediatric) (07/10/18) Surgery Performed Operation Date: 07/10/18 07:45 Actual Procedures p Total Knee Arthroplasty(Right) - Ivan Shah MD Physical Therapy Treatment Note M2 PT-IP Current Condition Start: 07/10/18 15:17 Freq: NEEDED Status: Active Protocol: Document 07/10/18 13:55 AB (Rec: 07/10/18 15:49 AB [id number]) Physical Therapy Current Condition Current Condition Evaluation Date 07/10/18 Treatment Diagnosis s/p R TKA; difficulty in walking Onset Date 07/10/18 Weight Bearing Status Weight Bearing Status Weight Bear as Tolerated M3 PT-IP Subjective Start: 07/10/18 15:17 Freq: NEEDED Status: Active Protocol: Document 07/12/18 10:30 GGD (Rec: 07/12/18 11:23 GGD [email or web address]) Subjective Physical Therapy Visit Type Type Treatment Note Visit Start Time 10:00 Visit Stop Time 10:30 Total Visit Minutes 30 Number of SANDER HAND Visits 3 Physical Therapy Visit Comments Patient Comments Pt hopes to go home. Therapy Pain Assessment Pain When Pain Assessed During Mobility Pain Present Pain Present Pain Reported Location Right Knee Intensity 3 Scale Used Numeric (1 - 10) Description With Movement Pain Management Techniques Apply Cold Re-positioning Timing of Activity with Medications M4 PT-IP Mobility and Gait Start: 07/10/18 15:17 Freq: NEEDED Status: Active Protocol: Document 07/12/18 10:30 GGD (Rec: 07/12/18 11:23 GGD [email or web address]) PT-Bed Mobility Assessment Supine to Sit Supine to Sit Minimal Assistance Sit to Supine Sit to Supine Minimal Assistance Scooting Scooting to Edge of Bed Standby Assistance Scooting Up and Down in Bed Standby Assistance PT-Transfer Assessment Sit to and From Stand Sit to and from Stand Standby Assistance Use of Upper Extremities Equipment Transfer Assistive Device Gait Belt Front Wheeled Walker Orthotic/Prosthetic Devices or Brace: No Transfers Transfer Destination Bed Toilet Transfer Ability Level of Assist Standby Assistance 1 Person Assistance Use of Upper Extremities Gait Assessment Gait Gait Assistance Required: Contact Guard Assist Distance (Feet) 150 Able to Maintain Weight Bearing Status Yes During Gait Assistive Devices Assistive Device Gait Belt Front Wheeled Walker Orthotic/Prosthetic Devices or Brace: No Gait Deviations General Gait Pattern Antalgic Decreased Stride Length Decreased Feet Clearance Factors Limiting Gait Function Factors Limiting Gait Function Decreased Activity Tolerance Decreased Strength Limited Range of Motion Pain Poor Balance Comments Gait Comments PT needed min cues for right knee flexion. Stair Climbing Assessment Evaluation Level of Assist On Stairs Contact Guard Assistance Devices Stair Climbing Assistive Devices Straight Cane Left Railing Right Railing Technique/Endurance Stair Climbing Direction Ascend and Descend Stair Climbing Technique Step to Step Number of Steps Climbed 3 Query Text: Stair Climbing Set # Repetitions (reps) 4 Comments Stair Climbing Comments Stair mobility three sets with right rail and SPC and one set with left rail and SPC, with CGA and min cues. M5 PT-IP Objective Assessments Start: 07/10/18 15:17 Freq: NEEDED Status: Active Protocol: Document 07/10/18 13:55 AB (Rec: 07/10/18 15:49 AB [id number]) Orientation Orientation/Cognition Level of Alertness Alert Orientation Name Age Birthday Month Date Year Day of Week Place Situation Safety Awareness Understands Safety Issues Memory Description No Deficits Noted Gross Range of Motion Lower Extremity ROM Assessment Right Impaired Impairments R knee flexion : ~ 70 degrees Strength Lower Extremity Strength Assessment Right Impaired Knee 3+/5 Muscle Tone Muscle Tone WNL Yes M6 PT-IP Treatment Start: 07/10/18 15:17 Freq: NEEDED Status: Active Protocol: Document 07/12/18 10:30 GGD (Rec: 07/12/18 11:23 GGD [email or web address]) Physical Therapy Treatment Exercises Exercises Ankle Pumps Quad Sets Heel Slides Seated Knee Flexion/Extension M7 PT-IP Assessment and Plan Start: 07/10/18 15:17 Freq: NEEDED Status: Active Protocol: Document 07/12/18 10:30 GGD (Rec: 07/12/18 11:23 GGD [email or web address]) PT Summary Assessment and Plan Summary Assessment Summary Pt had increase in c/o pain with bed mobility and stairs. She was able progress gait and stair mobility. She was safe and stable with gait and stair mobility. She safe for home D /C when medically stable. Frequency of Treatment Frequency Of Treatment Twice a Day Recommendations To Nursing Amount of Assist Needed 1 Person Assist Discharge Recommendations PT Discharge Recommendations Home with Assistance Outpatient PT
[2018-07-12 13:00] VITALS: BP 138/72; PULSE 95; RESP 18; TEMP 37.7; O2SAT 95
== END 2018-07-12 14:00 | disposition home or self-care (01) ==
LOC: OR 07-12 08:06
PROVIDERS: Admitting Provider Orthopaedic Surgery; PCP Internal Medicine; Visit Provider Orthopaedic Surgery
PROC: 0SRC0JZ Replacement of Right Knee Joint with Synthetic Substitute, Open Approach (ICD-10-PCS; CPT 27447; principal; 2018-07-10 07:45)
DX: M17.11 Unilateral primary osteoarthritis, right knee (principal); G47.33 Obstructive sleep apnea (adult) (pediatric); D64.9 Anemia, unspecified
CPT/HCPCS: 27447; 36415; 73560; 85014; 85018; 97116; 97161; 97530; C1776; G0378; C9290; J0690; J1170; J2250; J2405; J2704; J3010

== ENCOUNTER 2019-07-03 07:43 | Observation (INO) | payer OTHER, SELFPAY ==
[2018-07-10 11:22] VITALS: BMI 34.7
[2019-06-24 08:39] VITALS: BMI 32.5
[2019-07-02] VITALS (12 sets, daily range): BP systolic 101–160; BP diastolic 59–98; PULSE 73–93; RESP 10–21; TEMP 35.7–36.7; O2SAT 95–100; BMI 32.5
--- NOTE | 2019-07-02 06:00 | DI.RAD.S_ITS ---
PROCEDURE: XR KNEE LT 1TO2V INDICATIONS: post op films TECHNIQUE: 2 view(s) of the knee acquired. COMPARISON: [facility], XR KNEE ARTHRITIC SERIES LT, 02/13/2019, 10:34. FINDINGS: Bones: Patient is status post knee joint arthroplasty. Hardware components are in expected positions. Visualized bony structures are intact. Soft tissues: Overlying postoperative changes are noted. Skin charly are evident along the anterior margin of the knee. No unexpected radiopaque foreign bodies are evident. Expected areas of soft tissue edema and air are present. IMPRESSION: Expected post surgical changes related to a total left knee arthroplasty. Dictated by: Andrews Maloney M.D. on 07/02/2019 at 9:56 Approved by: Andrews Maloney M.D. on 07/02/2019 at 9:57
[2019-07-02] MEDS: ACETAMINOPHEN 325 MG TABLET 975 MG PO (08:02)
[2019-07-02] MEDS: PREGABALIN 75 MG CAPSULE PO (08:07)
[2019-07-02] MEDS: MELOXICAM 7.5 MG TABLET 15 MG PO (08:09)
--- NOTE | 2019-07-02 08:26 | SUR.OPER ---
Supine on padded OR bed, head on pillow, arms secured on padded arm boards at <90 degrees abduction, legs uncrossed, safety belt at thigh, tape over blanket over lower legs.
[2019-07-02] MEDS: LACTATED RINGERS 1,000 ML 42 ML IV (08:30)
--- NOTE | 2019-07-02 08:37 | PM.PREOP ---
Pre-operative Note Interval Note History & Physical reviewed/Exam performed by Physician: Yes Changes to H&P: No
--- NOTE | 2019-07-02 08:37 | PM.OP.1 ---
Operative Date/Time/Diagnoses Date of procedure: 07/02/19 Time of procedure: 09:56 Pre-op diagnosis: Left knee osteoarthritis Post-op diagnosis: same Procedure & Clinicians Procedure: Left total knee arthroplasty Same procedure as scheduled: Yes Indications: The patient presents today for total knee arthroplasty after failure of conservative treatment. The nature of the procedure including the risks and benefits, alternatives, postoperative course and expected outcome were discussed and all questions answered. Consent was obtained. Operative site confirmed and marked. Surgeon: Ivan Shah Manager Performance: Fredo Mike Click Yes if Unassisted: Yes Anesthesia Type: General, Spinal and Local Operative Notes Findings: The patient had severe osteoarthritis with varus alignment that was relatively correctable. After all the cuts were made she was fairly well-balanced just slightly lax medially compared to laterally. The gaps were little bigger than anticipated and a 12 mm poly insert insert was placed. This gave excellent medial lateral stability again just slightly looser medially than laterally. Patellar tracking was excellent. Closure Type: primary Specimen(s): none sent Prosthetic devices, grafts, tissues, transplants, or devices: [employer] Nima BCS: 4 femoral component, 2 tibial component, 12 mm BCS polyethylene tray and 32 x 7.5 mm round patella Applied: implant(s) Blood products transfused: none Tourniquet time (min): 44 Procedure in detail: The patient was taken to the operative suite and placed under spinal and general anesthesia. The patient was given prophylactic antibiotics prior to surgery. The patient was also given tranexamic acid, 1 g, just prior to surgery for postoperative hemostasis. The lateral knee was prepped and the joint injected with 20 mL of 1% Lidocaine with epinephrine. The knee was then prepped and draped in usual sterile fashion. The leg was exsanguinated with an Esmarch dressing and the tourniquet raised to 250 torr. A 15 cm anterior incision was made. Next a medial trivector arthrotomy was made. The extensor mechanism was marked to ensure accurate repair. Initial exposing dissection was carried out medially and laterally. The knee was then flexed and the intramedullary femoral guide alana placed. The distal femoral cut was made in 6 ? of valgus at the + 0 position. The femoral size was measured and the appropriate cutting block was then placed and the anterior, posterior and chamfer cuts made. The intramedullary tibial alignment alana was then placed. The guide was set to remove approximately 10 mm from the less affected lateral side. The proximal tibial cut was then made with an oscillating saw. All meniscus and bony debris was then removed. Posterior femoral osteophytes removed with a curved osteotome. Flexion extension gaps were checked. No specific balancing was required other than routine exposure and removal of osteophytes. The soft tissues were then injected with a combination of 20 mL of half percent Marcaine with epinephrine and 20 mL of Exparel. The trial components were then placed. The knee was then extended and the patellar thickness was measured and a cut made removing approximately 7-8 mm of bone. The patella was then sized and drilled. Some excess lateral bone was excised and the patellofemoral ligament released. The knee went into full extension and flexion beyond 120?. There was excellent medial-lateral balance throughout motion with just slight increased medial laxity. Patellar tracking was excellent. The trial components were removed and the knee was cleansed with Pulsavac irrigation and dried. The final components were cemented with high viscosity vacuum mixed bone cement with antibiotics. The joint was filled with a dilute Betadine solution. The knee was held in extension and the patellar clamped until the cement was adequately cured. The knee was then irrigated. The extensor mechanism was closed with 5 interrupted #1 Vicryl sutures and a running Quill suture at approximately 90 degrees of flexion. The joint was then injected with a combination of 1 g of tranexamic acid and 20 mL of quarter percent Marcaine with epinephrine. The subcutaneous tissue was closed with 2 0 Vicryl. The skin was closed with charly and surgical adhesive. An Aquacel dressing and Vinh wrap were then applied. The patient tolerated the procedure well and was returned to recovery room in good condition. Complications: none Post-operative Condition: stable Disposition: PACU Plan for aftercare: [facility] protocol for total knee arthroplasty.
[2019-07-02] MEDS: CEFAZOLIN 2 GM/100 ML FROZ.PIGGY IV ×2 (08:40→16:44)
[2019-07-02] MEDS: TRANEXAMIC ACID 1,000 MG VIAL 1000 MG INJ (09:00)
[2019-07-02] MEDS: BUPIVACAINE 0.25% W/ EPI (PF) 40 ML, BUPIVACAINE LIPOSOME 266 MG, SODIUM CHLORIDE 0.9% ... INJ (09:13)
[2019-07-02] MEDS: BUPIVACAINE 0.25% W/ EPI (PF) 20 ML, TRANEXAMIC ACID 1,000 MG, SODIUM CHLORIDE 0.9% 10 ML INJ (09:15)
[2019-07-02] MEDS: LIDOCAINE 1% W/EPI 20 ML INJ (09:19)
--- NOTE | 2019-07-02 10:53 | SUR.PHASEI ---
1040 - Patient taken to room 213 in bed in stable condition. Receiving RN given report and received patient. All belongings, including cpap, with patient.
[2019-07-02] MEDS: LACTATED RINGERS 1,000 ML 125 ML IV ×2 (12:09→21:43)
[2019-07-02] MEDS: IBUPROFEN 400 MG TABLET PO ×3 (13:51→21:42)
[2019-07-02] MEDS: ACETAMINOPHEN 325 MG TABLET 650 MG PO ×2 (13:51→21:42)
[2019-07-02] MEDS: OXYCODONE IR 5 MG TABLET 10 MG PO ×3 (13:54→21:42)
--- NOTE | 2019-07-02 14:55 | PT.IIE ---
Current Diagnoses Unilateral primary osteoarthritis, right knee (07/02/19) Surgery Performed Operation Date: 07/02/19 08:45 Actual Procedures p Total Knee Arthroplasty(Left) - Ivan Shah MD Surgical History (Last Updated 06/24/19 @ 09:02 by Fannie Webb, HAL) H/O sinus surgery (Acute) H/O: (Acute) History of arthroplasty of right knee (Acute 07/10/18) History of bilateral tubal ligation (Acute) History of bladder suspension procedure (Acute) History of colonoscopy (Acute) History of mandibular surgery (Acute) Medical History (Last Updated 06/24/18 @ 15:22 by Martita Forde RN) Anemia, iron deficiency (Acute) Anxiety (Acute) Arthropathy of hand (Acute) Bilateral carpal tunnel syndrome (Acute) Zoya nodes (DJD hand) (Acute) Bruises easily (Acute) Cataracts, bilateral (Acute) Constipation (Acute) DJD (degenerative joint disease) of knee (Acute) Elevated BP without diagnosis of hypertension (Acute) GERD (gastroesophageal reflux disease) (Acute) Headache (Acute) History of menorrhagia (Acute) Hyperthyroidism (Acute) Hyponatremia (Acute) Insomnia (Acute) Low back pain (Acute) HARVEY (obstructive sleep apnea) (Acute) Other constipation (Acute) Other hyperlipidemia (Acute) PLMD (periodic limb movement disorder) (Acute) Postmenopausal (Acute) Recurrent sinusitis (Acute) Restless leg syndrome (Acute) Sigmoid diverticulosis (Acute) Thrombocytopenia (Acute) Physical Therapy Inpatient Evaluation/Re-Eval M1 PT/OT-IP Prior Functional Status Start: 07/02/19 16:56 Freq: NEEDED Status: Active Protocol: Document 07/02/19 14:55 AB (Rec: 07/02/19 17:30 AB [id number]) Medical Review Prior Functional Status Medical History Reviewed Yes Communication able to make needs known Mobility and Gait pt stated that she is independent with all mobilities and ambulation without AD Social History Household Members spouse Living Arrangements House Number of Floors (Floors) 3 or More Floors Number of Stairs To Enter/Railing? 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 [employer] stated that spouse works and will not be available to provide 24/7 assistance M2 PT-IP Current Condition Start: 07/02/19 16:56 Freq: NEEDED Status: Active Protocol: Document 07/02/19 14:55 AB (Rec: 07/02/19 17:30 AB [id number]) Physical Therapy Current Condition Current Condition Evaluation Date 07/02/19 Treatment Diagnosis s/p L TKA; difficulty in walking Onset Date 07/02/19 Weight Bearing Status Weight Bearing Status Weight Bear as Tolerated M3 PT-IP Subjective Start: 07/02/19 16:56 Freq: NEEDED Status: Active Protocol: Document 07/02/19 14:55 AB (Rec: 07/02/19 17:30 AB [id number]) Subjective Physical Therapy Visit Type Type Initial Evaluation Visit Start Time 14:55 Visit Stop Time 15:40 Total Visit Minutes 45 Number of VIBRATION TECHNICIAN Visits 0 Physical Therapy Visit Comments Patient Comments pt agreeable to do PT Patient Goals to go home Therapy Pain Assessment Pain When Pain Assessed At Rest Pain Present Pain Present Pain Reported Location Right Knee Intensity 5 Scale Used Numeric (1 - 10) Pain Management Techniques Apply Cold,Re-positioning, Timing of Activity with Medications M4 PT-IP Mobility and Gait Start: 07/02/19 16:56 Freq: NEEDED Status: Active Protocol: Document 07/02/19 14:55 AB (Rec: 07/02/19 17:30 AB [id number]) PT-Bed Mobility Assessment Supine to Sit Supine to Sit Standby Assistance Sit to Supine Sit to Supine Minimal Assistance,1 Person Assistance Scooting Scooting to Edge of Bed Minimal Assistance PT-Transfer Assessment Sit to and From Stand Sit to and from Stand Minimal Assistance,1 Person Assistance,Use of Upper Extremities Equipment Transfer Assistive Device Gait Belt,Front Wheeled Walker Orthotic/Prosthetic Devices or Brace: No Transfers Transfer Destination Bedside Commode Transfer Technique Stand Step Pivot Transfer Ability Level of Assist Minimal Assistance,1 Person Assistance,Use of Upper Extremities Comments Mobility Comments pt completed supine to sit SBA . requested to use the toilet and completed sit to stand min A and cues and transfer to bedside commode using FWW min A and cues. assisted pt with gown and socks change. pt completed sit to stand from bedside commode min A and cues and was able to maintain standing using FWW for support while NAC assisted with hygiene care and brief managment. pt then ambulated towards the chair using FWW min A and cues for L quad activation. Gait Assessment Gait Gait Assistance Required: Minimum Assistance Distance (Feet) 12 Able to Maintain Weight Bearing Status Yes During Gait Assistive Devices Assistive Device Gait Belt,Front Wheeled Walker Orthotic/Prosthetic Devices or Brace: No Gait Deviations General Gait Pattern Antalgic Factors Limiting Gait Function Factors Limiting Gait Function Decreased Activity Tolerance, Decreased Sensation,Decreased Strength,Limited Range of Motion,Pain,Poor Balance PT-Balance Assessment Sitting Balance and Reactions Static Sitting Balance Ability Good Dynamic Sitting Balance Ability Good Standing Balance and Reactions Static Standing Balance Ability Fair Dynamic Standing Balance Ability Fair Device Used FWW M5 PT-IP Objective Assessments Start: 07/02/19 16:56 Freq: NEEDED Status: Active Protocol: Document 07/02/19 14:55 AB (Rec: 07/02/19 17:30 AB [id number]) Orientation Orientation/Cognition Level of Alertness Alert Orientation Name,Place,Situation Language Function Ability No Deficits Noted Safety Awareness Decreased Safety Awareness Gross Range of Motion Lower Extremity ROM Assessment Left Impaired Impairments L knee flexion: ~ 70 deg Strength Lower Extremity Strength Assessment Left Impaired Hip 4-/5 Knee 3+/5 Coordination Assessment Gross Coordination Gross Coordination WNL Muscle Tone Muscle Tone WNL Yes M6 PT-IP Treatment Start: 07/02/19 16:56 Freq: NEEDED Status: Active Protocol: Document 07/02/19 14:55 AB (Rec: 07/02/19 17:30 AB [id number]) Physical Therapy Treatment Exercises Exercises Heel Slides Education Education Provided Precautions,Weight Bearing Status,Post-Op Packet,Safety M7 PT-IP Assessment and Plan Start: 07/02/19 16:56 Freq: NEEDED Status: Active Protocol: Document 07/02/19 14:55 AB (Rec: 07/02/19 17:30 AB [id number]) PT Summary Assessment and Plan Potential Rehabilitation Potential Good Status of Condition at Evaluation Stable Summary Impairments Pain,ROM,Strength,Balance, Coordination,Sensation,Tone, Cognition,Bed Mobility, Transfers,Gait,Activity Tolerance Assessment Summary pt requiring min A and cues with mobility. pt plans to go home and spouse will assist but goes to work and will not be available all the time. d/ c plan depends on progress and will have to conduct caregiver training when appropriate and also have to complete stair climbing training prior to d/c. pt also stated that she is set up for outpt PT already. Goals Bed Mobility Goal Independent Transfer Goal Independent,Front Wheeled Walker Gait Goal Independent,Front Wheel Walker Gait Distance 150 Other Goals up/down 15 steps with R rail ascending Days to Meet Goals 5 Frequency of Treatment Frequency Of Treatment Twice a Day Treatment Plan Physical Therapy Treatment Plan Bed Mobility Training,Transfer Training,Gait Training, Therapeutic Exercise,Balance Retraining,Post Op Education, Discharge Planning,Hot or Cold Pack,Neuromuscular Re-ed, Coordination Retraining,Manual Therapy Other Recommendations and Next Treatment ambulation, caregiver training Focus , stair climbing Recommendations To Nursing Amount of Assist Needed 1 Person Assist Discharge Recommendations PT Discharge Recommendations Home with Assistance, Outpatient PT
--- NOTE | 2019-07-02 15:45 | PC.NURSE ---
Ortho: Pt had concerns about pain control but so far it hasn't been an issue with the tylenol, ibuprofen, and oxycodone. Neurovasc intact, brisk cap refill, feet =/warm, ppp. Tolerated diet w/out problems. Has not been able to void on the bedpan and pt is working w/PT right now to get her up amb and hopefully she will be able to void. Cont w/poc.
[2019-07-02] MEDS: LOVASTATIN 20 MG TABLET 40 MG PO (16:42)
[2019-07-02] MEDS: ASPIRIN EC 81 MG TABLET PO (21:42)
[2019-07-02] MEDS: PRAMIPEXOLE 0.25 MG TABLET 0.5 MG PO (21:46)
[2019-07-03] MEDS: CEFAZOLIN 2 GM/100 ML FROZ.PIGGY IV (01:23)
[2019-07-03] MEDS: IBUPROFEN 400 MG TABLET PO ×4 (01:23→13:30)
[2019-07-03 05:55] VITALS: BP 120/63; PULSE 78; RESP 16; TEMP 36.6; O2SAT 97
[2019-07-03 06:03] LABS: Hematocrit 32.6 % (36-46); Hemoglobin 11.1 g/dL (12.0-16.0)
--- NOTE | 2019-07-03 06:09 | PC.NURSE ---
Pain states pain is still 6/10 after Ibuprofen given, offered Oxycodone but pt. wants to wait to have it at least 1 hr prior to physical therapy. Pt. assisted by IC DESIGNER GATE ARRAYS to the bathroom for void.
[2019-07-03 07:45] VITALS: BP 144/83; PULSE 79; RESP 17; TEMP 36.7; O2SAT 98
[2019-07-03 08:03] VITALS: PULSE 82; O2SAT 95
[2019-07-03] MEDS: ACETAMINOPHEN 325 MG TABLET 650 MG PO (09:03)
[2019-07-03] MEDS: OXYCODONE IR 5 MG TABLET PO ×2 (09:03→13:29)
[2019-07-03] MEDS: ASPIRIN EC 81 MG TABLET PO (09:04)
--- NOTE | 2019-07-03 09:38 | PT.IPTN ---
This is to certify that I have reviewed this documentation and is involved with this pt's care. Current Diagnoses Unilateral primary osteoarthritis, right knee (07/03/19) Surgery Performed Operation Date: 07/02/19 08:45 Actual Procedures p Total Knee Arthroplasty(Left) - Ivan Shah MD Physical Therapy Treatment Note M2 PT-IP Current Condition Start: 07/02/19 16:56 Freq: NEEDED Status: Discharge Protocol: Document 07/02/19 14:55 AB (Rec: 07/02/19 17:30 AB [id number]) Physical Therapy Current Condition Current Condition Evaluation Date 07/02/19 Treatment Diagnosis s/p L TKA; difficulty in walking Onset Date 07/02/19 Weight Bearing Status Weight Bearing Status Weight Bear as Tolerated M3 PT-IP Subjective Start: 07/02/19 16:56 Freq: NEEDED Status: Discharge Protocol: Document 07/03/19 09:38 MT (Rec: 07/03/19 11:33 MT [id number]) Subjective Physical Therapy Visit Type Type Treatment Note Visit Start Time 09:38 Visit Stop Time 10:01 Total Visit Minutes 23 Number of WEATHER CLERK Visits 0 Physical Therapy Visit Comments Patient Comments pt agreeable to do PT Therapy Pain Assessment Pain When Pain Assessed During Mobility Pain Present Pain Present Pain Reported Location Left Knee Intensity 6 Scale Used Numeric (1 - 10) M4 PT-IP Mobility and Gait Start: 07/02/19 16:56 Freq: NEEDED Status: Discharge Protocol: Document 07/03/19 09:38 MT (Rec: 07/03/19 11:33 MT [id number]) PT-Bed Mobility Assessment Sit to Supine Sit to Supine Independent Scooting Scooting to Edge of Bed Independent PT-Transfer Assessment Sit to and From Stand Sit to and from Stand Independent,Standby Assistance Equipment Transfer Assistive Device Gait Belt,Front Wheeled Walker Orthotic/Prosthetic Devices or Brace: No Transfers Transfer Destination Bed,Toilet Transfer Technique sit to stand Transfer Ability Level of Assist Standby Assistance Comments Mobility Comments Pt was found in chair at beginning of treatment session . Pt performed sit to stand SBA using 2WW to ambulate to the toilet and then performed a stadn to sit with SBA using 2WW. Pt was able to perform her pericare by herself. And then independently performed sit to stand using 2WW to initiate ambulation. Following ambulation, pt was able to perform stand to sit with 2WW independently and was able to independently return to supine position and scoot to the middle of the bed. pt was left with her call light and table in reach at the end of the session. Gait Assessment Gait Gait Assistance Required: Standby Assistance Distance (Feet) 200 Able to Maintain Weight Bearing Status Yes During Gait Assistive Devices Assistive Device Gait Belt,Front Wheeled Walker Orthotic/Prosthetic Devices or Brace: No Gait Deviations General Gait Pattern Antalgic,Decreased Stride Length Factors Limiting Gait Function Factors Limiting Gait Function Decreased Activity Tolerance, Decreased Strength,Pain,Poor Balance Comments Gait Comments Pt first ambulated 15 feet from bed to toilet with SBA and using FWW. Then pt ambulated 200ft with 2WW and SBA in hallway to initiate stair training. Following stair training, pt ambulated 200 ft back to room. She required some cueing with how to use the 2WW to upsh instead of lifting it. Pt also required minimal cueing for tightening her quad to maintian stability in her L LE. Stair Climbing Assessment Evaluation Level of Assist On Stairs Standby Assistance Devices Stair Climbing Assistive Devices Right Railing Technique/Endurance Stair Climbing Direction Ascend and Descend Stair Climbing Technique Step to Step Number of Steps Climbed 3 Stair Climbing Set # Repetitions (reps) 3 Comments Stair Climbing Comments Pt was educated in proper sequence and safety in ascening/descending stairs with use of R handrail using B UE. Pt was able to ascend/ descend 3 stairs 3 times using R handrail and SBA before requiring a break. She required some cueing with turning her body at a diagnoal to void rotation at her trunk or legs when using the handrail. M5 PT-IP Objective Assessments Start: 07/02/19 16:56 Freq: NEEDED Status: Discharge Protocol: Document 07/02/19 14:55 AB (Rec: 07/02/19 17:30 AB [id number]) Orientation Orientation/Cognition Level of Alertness Alert Orientation Name,Place,Situation Language Function Ability No Deficits Noted Safety Awareness Decreased Safety Awareness Gross Range of Motion Lower Extremity ROM Assessment Left Impaired Impairments L knee flexion: ~ 70 deg Strength Lower Extremity Strength Assessment Left Impaired Hip 4-/5 Knee 3+/5 Coordination Assessment Gross Coordination Gross Coordination WNL Muscle Tone Muscle Tone WNL Yes M6 PT-IP Treatment Start: 07/02/19 16:56 Freq: NEEDED Status: Discharge Protocol: Document 07/03/19 09:38 MT (Rec: 07/03/19 11:33 MT [id number]) Physical Therapy Treatment Education Education Provided Safety M7 PT-IP Assessment and Plan Start: 07/02/19 16:56 Freq: NEEDED Status: Discharge Protocol: Document 07/03/19 09:38 MT (Rec: 07/03/19 11:33 MT [id number]) PT Summary Assessment and Plan Potential Rehabilitation Potential Good Status of Condition at Evaluation Stable Summary Impairments Pain,ROM,Strength,Balance, Coordination,Sensation,Tone, Cognition,Bed Mobility, Transfers,Gait,Activity Tolerance Progress Towards Goals Progressing Toward Goals Assessment Summary pt generally requires SBA with her gait and mobility using a 2WW. Initiated stair training today. Pt was able to ascend/descend 9 stairs total using R handrail before requiring a break. She will continue to benefot from skilled PT to improve her saftey and independence with gait and mobility. She is still appropriate for her discharge destination to be home with assistance from and continuation of OP PT. Goals Bed Mobility Goal Independent Transfer Goal Independent,Front Wheeled Walker Gait Goal Independent,Front Wheel Walker Gait Distance 150 Other Goals up/down 15 steps with R rail ascending Days to Meet Goals 5 Frequency of Treatment Frequency Of Treatment Twice a Day Treatment Plan Physical Therapy Treatment Plan Bed Mobility Training,Transfer Training,Gait Training, Therapeutic Exercise,Balance Retraining,Post Op Education, Discharge Planning,Hot or Cold Pack,Neuromuscular Re-ed, Coordination Retraining,Manual Therapy Other Recommendations and Next Treatment ambulation, caregiver training Focus , stair climbing Recommendations To Nursing Amount of Assist Needed 1 Person Assist Discharge Recommendations PT Discharge Recommendations Home with Assistance, Outpatient PT
--- NOTE | 2019-07-03 10:26 | P.DS_ITS ---
History of Present Illness History of Present Illness Date Patient Seen: 07/03/19 Time Patient Seen: 10:26 Chief complaint: *[id number] Narrative: Hospital day 2, postop day 1 following left total knee arthroplasty by Dr. Shah. She has remained stable postoperatively. Progressed with physical therapy and they feel she is stable to go home. She is scheduled go to [facility] in [place]. She has prescription at home for oxycodone. Discharge Providers Provider Date of admission: 07/03/19 07:43 Discharge Date: 07/03/19 Primary care physician: Jose Barnahrt MD Consults: 07/02/19 10:50 Consult to Discharge Planning Routine Comment: Consult to Physical Therapy Evaluate & Treat Comment: Physician Instructions: postop TKA protocol Consult to Respiratory Therapy Evaluate & Treat Comment: Physician Instructions: Evaluate and treat Discharge provider: Gee Greenberg PA-C Summary Hospital Course Discharge Diagnosis: Status post left total knee arthroplasty Hospital Course: Patient brought to hospital on 07/02/2019 for above noted surgery. She remained stable postoperatively. Progressed with physical therapy. Ready for discharge home on postop day 1. Status at Discharge Cognitive/behavioral status at discharge: oriented Functional status at discharge: uses cane/walker Overall status at discharge: patient is progressing back to baseline Time Spent with Patient Time spent: Less than 30 minutes Exam Vital Signs (past 8 hours): - 07/03/19 05:55 07/03/19 07:45 07/03/19 08:03 Temperature 97.8 F 98.1 F Pulse Rate 78 79 82 Respiratory Rate 16 17 Blood Pressure 120/63 144/83 H Pulse Oximetry 97 98 95 Oxygen Delivery Method Room Air Oxygen Flow Rate 0 Narrative Exam Narrative: Alert, oriented no acute distress resting in bed. Legs. Vinh wrap an Aquacel dressing to left knee is dry without drainage or inflammation. Mild swelling. No calf pain or swelling. Pulses symmetrical. Objective Labs Result Diagrams: 07/03/19 05:42 Labs: Laboratory Results - last 24 hr 07/03/19 05:42 Hgb 11.1 L Hct 32.6 L Discharge Plan Discharge Plan Patient Disposition: Home Discharge orders & Medications Prescriptions: New aspirin 81 mg Tablet,Delayed Release (Dr/Ec) 81 mg PO BID Qty: 60 RF: 0 acetaminophen 325 mg Tablet 650 mg PO TID Qty: 30 RF: 0 Continued lovastatin 40 mg Tablet 40 mg PO QPM RF: 0 pramipexole 0.5 mg Tablet 0.5 mg PO BEDTIME RF: 0 ranitidine HCl 150 mg Tablet 150 mg PO DAILY PRN (Reason: Heartburn) RF: 0 ibuprofen [Advil] 200 mg Tablet 400 mg PO QID PRN (Reason: Pain) RF: 0 Follow up/Referrals: Jose Barnhart MD [Primary Care Provider] - Discharge Health Status Multidrug resistant organism: No MDRO Diet/Activity/Treatments Diet: Diet as Tolerated Activity: Ambulate as tolerated. Use walker as needed. Cold/Heat Therapy: Cold pack to left knee as needed. Skin/Wound/Dressing Care Report to your healthcare provider any signs of infection, such as:: chills, fever, night sweats, increased pain, unusual drainage and unusual redness Dressing: Keep Aquacel dressing in place until postop visit. Visit Report/Discharge Packet Instructions: DI for Knee Replacement, DI for Prescription Opioid Use Discharge Data Primary Care Provider: Jose Barnhart Attending Provider: Ivan Shah Admit Date/Time: 07/03/19 07:43
--- NOTE | 2019-07-03 10:37 | PC.NURSE ---
Dressing to L.knee wendy jones. Given 5mg of oxycodone with tylenol and ibuprofen for discomfort. Patient verbalized improvement of discomfort. Up with physical therapy, patient will be discharging home around 1330 today.
--- NOTE | 2019-07-03 15:20 | CM.IDA ---
Initial DCP Assessment Note: Pt is a 64 yo female, resident of [place], now POD#1 from [facility] knee surgery w/ Dr King PCP: Jose Barnhart Payer: Prakash DONALDSON Reviewed chart, pt discussed in multidisciplinary rounds this morning. Therapy has cleared pt for return home w/family to assist and pt has planned for home, DC order from [facility] has already been initiated this morning. Pt eager to return home today No needs identified from DC planning team VANESA Baires
== END 2019-07-03 13:53 | disposition home or self-care (01) ==
LOC: OR 08:00
PROVIDERS: Admitting Provider Orthopaedic Surgery; PCP Internal Medicine; Visit Provider Orthopaedic Surgery
PROC: 0SRD0JZ Replacement of Left Knee Joint with Synthetic Substitute, Open Approach (ICD-10-PCS; CPT 27447; principal; 2019-07-02 08:45)
DX: M17.12 Unilateral primary osteoarthritis, left knee (principal); G47.33 Obstructive sleep apnea (adult) (pediatric)
CPT/HCPCS: 27447; 36415; 73560; 85014; 85018; 94760; 97116; 97161; 97530; C1776; G0378; C9290; J0690; J1100; J2250; J2405; J2704; J3010